=== PATIENT | female | born 1975 | race Caucasian/White ===

== ENCOUNTER → 2017-02-13 | Day surgery (SDC) | payer OTHER ==
[~2017-02-13] MED LIST: Acetaminophen/oxyCODONE 325-5 MG Tab PO PRN; HYDROmorphone 0.5 MG/0.5 ML Syringe IVPUSH PRN; HYDROmorphone 1 MG/ML Syringe ONE; Ketorolac 30 MG/ML SDV ONE; Lactated Ringers 1,000 ML ONE; Lidocaine 1% 4 ML ONE; Lidocaine 1% with EPINEPHrine 1:100,000 20 ML MDV ONE; Lidocaine 1%/Sod Bicarbonate in NS 8.4% 1 ML Syringe IV PRN; Meperidine PF 50 MG/ML Syringe IVPUSH PRN; Midazolam 1 MG/ML 2 ML SDV ONE; Neostigmine Methylsulfate 1 MG/ML 5 ML Syringe ONE; Ondansetron 4 MG/2 ML SDV IVPUSH PRN; Ondansetron 4 MG/2 ML SDV ONE; Promethazine 6.25 MG in Sodium Chloride 0.9% 50 ML IV PRN; Propofol 200 MG/20 ML SDV ONE; Rocuronium 50 MG/5 ML Vial ONE; Scopolamine 1.5 MG Transdermal Patch TOP ONE; Sodium Chloride 0.9% 10 ML Syringe FLUSH PRN; Sodium Chloride 0.9% 50 ML SDV ONE; ceFAZolin 1 GM Vial ONE; diphenhydrAMINE 50 MG/ML SDV IVPUSH PRN; fentaNYL 100 MCG/2 ML SDV IVPUSH PRN; fentaNYL 250 MCG/5 ML SDV ONE
[2017-02-13] MEDS: Lactated Ringers 1,000 ML IV SCH ×2 (08:35→11:01)
--- NOTE | 2017-02-13 09:03 | PCM.PREANE ---
Preanesthetic Assessment - Procedure Proposed Procedure: Total Vaginal Hysterectomy - Anesthesia/Transfusion/Family Hx Anesthesia History: Prior Anesthesia Reaction Type of Anesthesia Reaction: Excessive Nausea/Vomiting Family History of Anesthesia Reaction: No - Review of Systems General: No Symptoms Pulmonary: No Symptoms Cardiovascular: No Symptoms Gastrointestinal: No symptoms Neurological: No Symptoms Other: Reports: Thyroid Problems (Hypothyroid x 10 yrs. decreased dosage in January. currently asymptomatic) - Physical Assessment NPO Status Date: 02/12/17 NPO Status Time: 23:00 O2 Sat by Pulse Oximetry: 100 Respiratory Rate: 16 Vital Signs: Last Vital Signs Temp 37.3 C 02/13/17 08:05 Pulse 76 02/13/17 08:05 Resp 16 02/13/17 08:05 BP 118/73 02/13/17 08:05 Pulse Ox 100 02/13/17 08:05 Height: 1.57 m Weight: 83.461 kg ASA Class: 2 Mental Status: Alert & Oriented x3 Airway Class: Mallampati = 1 Dentition: Reports: [place](s) (bilateral lower molars; also has multiple fillings ), Missing Tooth/Teeth Thyro-Mental Finger Breadths: 3 Mouth Opening Finger Breadths: 3 - Lab Values: Laboratory Last Values WBC 7.84 K/mm3 (3.98-10.04) 02/12/17 10:53 RBC 4.58 M/mm3 (3.98-5.22) 02/12/17 10:53 Hgb 14.4 gm/L (11.2-15.7) 02/12/17 10:53 Hct 42.9 % (34.1-44.9) 02/12/17 10:53 MCV 93.7 fl (79.4-94.8) 02/12/17 10:53 MCH 31.4 pg (25.6-32.2) 02/12/17 10:53 MCHC 33.6 g/dl (32.2-35.5) 02/12/17 10:53 RDW Std Deviation 43.4 fL (36.4-46.3) 02/12/17 10:53 Plt Count 341 K/mm3 (182-369) 02/12/17 10:53 MPV 8.6 fl (9.4-12.3) L 02/12/17 10:53 Neut % (Auto) 57.7 % (34.0-71.1) 02/12/17 10:53 Lymph % (Auto) 33.3 % (19.3-51.7) 02/12/17 10:53 [place] % (Auto) 7.1 % (4.7-12.5) 02/12/17 10:53 Eos % (Auto) 1.3 (0.7-5.8) 02/12/17 10:53 Baso % (Auto) 0.5 % (0.1-1.2) 02/12/17 10:53 Neut # (Auto) 4.52 K/mm3 (1.56-6.13) 02/12/17 10:53 Lymph # (Auto) 2.61 K/mm3 (1.18-3.74) 02/12/17 10:53 [place] # (Auto) 0.56 K/mm3 (0.24-0.36) H 02/12/17 10:53 Eos # (Auto) 0.10 K/mm3 (0.04-0.36) 02/12/17 10:53 Baso # (Auto) 0.04 K/mm3 (0.01-0.08) 02/12/17 10:53 Sodium 138 mEq/L (136-145) 02/12/17 10:53 Potassium 4.1 mEq/L (3.5-5.1) 02/12/17 10:53 Chloride 103 mEq/L (98-107) 02/12/17 10:53 Carbon Dioxide 30 mEq/L (21-32) 02/12/17 10:53 Anion Gap 9.1 (5-15) 02/12/17 10:53 BUN 11 mg/dL (7-18) 02/12/17 10:53 Creatinine 0.9 mg/dL (0.55-1.02) 02/12/17 10:53 Est Cr Clr Drug Dosing TNP 02/12/17 10:53 Estimated GFR (MDRD) > 60 mL/min (>60) 02/12/17 10:53 BUN/Creatinine Ratio 12.2 (14-18) L 02/12/17 10:53 Glucose 98 mg/dL (74-106) 02/12/17 10:53 Calcium 9.3 mg/dL (8.5-10.1) 02/12/17 10:53 Total Bilirubin 0.4 mg/dL (0.2-1.0) 02/12/17 10:53 AST 14 U/L (15-37) L 02/12/17 10:53 ALT 29 U/L (14-59) 02/12/17 10:53 Alkaline Phosphatase 62 U/L (46-116) 02/12/17 10:53 Total Protein 8.2 g/dl (6.4-8.2) 02/12/17 10:53 Albumin 4.2 g/dl (3.4-5.0) 02/12/17 10:53 Globulin 4.0 gm/dL 02/12/17 10:53 Albumin/Globulin Ratio 1.1 (1-2) 02/12/17 10:53 TSH 3rd Generation 0.147 uIU/mL (0.358-3.74) L 02/12/17 10:53 Urine Color Yellow (Yellow) 02/12/17 10:53 Urine Appearance Clear (Clear) 02/12/17 10:53 Urine pH 8.5 (5.0-8.0) H 02/12/17 10:53 Ur Specific Ragland 1.015 (1.005-1.030) 02/12/17 10:53 Urine Protein Negative (Negative) 02/12/17 10:53 Urine Glucose (UA) Negative (Negative) 02/12/17 10:53 Urine Ketones Negative (Negative) 02/12/17 10:53 Urine Occult Blood Negative (Negative) 02/12/17 10:53 Urine Nitrite Negative (Negative) 02/12/17 10:53 Urine Bilirubin Negative (Negative) 02/12/17 10:53 Urine Urobilinogen 0.2 (0.2-1.0) 02/12/17 10:53 Ur Leukocyte Esterase 1+ (Negative) H 02/12/17 10:53 Urine HCG, Qual Negative (NEGATIVE) 02/13/17 08:07 Blood Type O NEGATIVE 02/12/17 10:53 Gel Antibody Screen Negative 02/12/17 10:53 - Allergies Allergies/Adverse Reactions: Allergies Allergy/AdvReac Type Severity Reaction Status Date / Time codeine Allergy Cannot Verified 02/12/17 13:07 Remember Penicillins Allergy Cannot Verified 02/12/17 13:07 Remember prednisone Allergy Cannot Verified 07/06/17 13:07 Remember tramadol Allergy Cannot Verified 02/12/17 13:07 Remember - Blood Blood Available: No - Acknowledgements Anesthesia Type Planned: General Anesthesia (Planned TIVA for PONV) Pt an Appropriate Candidate for the Planned Anesthesia: Yes Alternatives and Risks of Anesthesia Discussed w Pt/Guardian: Yes Pt/Guardian Understands and Agrees with Anesthesia Plan: Yes PreAnesthesia Questionnaire HEENT History: Reports: Impaired Vision Cardiovascular History: Reports: High Cholesterol Respiratory History: Reports: Sleep Apnea (uses CPAP) Gastrointestinal History: Reports: None 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: 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 (HX), Other (See Below) (Menorrhagia) Musculoskeletal History: Reports: None Neurological History: Reports: None Psychiatric History: Reports: None Endocrine/Metabolic History: Reports: Hypothyroidism, Other (See Below) (Pre diabetic on metformin) Hematologic History: Reports: None Immunologic History: Reports: None Oncologic (Cancer) History: Reports: None Dermatologic History: Reports: None - Past Surgical History Head Surgeries/Procedures: Reports: None HEENT Surgical History: Reports: Naso-Sinus Surgery, Oral Surgery, Tonsillectomy , Other (See Below) Female Surgical History: Reports: Cervical Cryotherapy, Endometrial Ablation (laparoscopy) - SUBSTANCE USE Smoking Status *Q: Never Smoker Tobacco Use Within Last Twelve Months: No Second Hand Smoke Exposure: No Days Per Week of Alcohol Use: 4 Number of Drinks Per Day: 1 Total Drinks Per Week: 4 Recreational Drug Use History: No - HOME MEDS Home Medications: Home Meds Levothyroxine 150 mcg PO DAILY 02/12/17 [History] Multivitamin [Multivitamins] 1 cap PO DAILY 02/12/17 [History] Nystatin [Nystatin] 1 applic TOP ASDIRECTED 02/12/17 [History] Pravastatin [Pravachol] 20 mg PO DAILY 02/12/17 [History] Triamcinolone Acetonide [Nasal Allergy] 1 spray NASBOTH DAILY 02/12/17 [History] metFORMIN [Glucophage XR] 500 mg PO BID 02/12/17 [History] - CURRENT (IN HOUSE) MEDS Current Meds: Current Medications Lactated Ringer's (Ringers, Lactated) 1,000 mls @ 125 mls/hr IV ASDIRECTED WILMA Stop: 02/13/17 23:00 Lidocaine/Sodium Bicarbonate (Buffered Lidocaine 1% In Ns 8.4%) 0.25 ml IV ONETIME PRN PRN Reason: Prior to IV Start Stop: 02/13/17 18:00 Sodium Chloride (Saline Flush) 10 ml FLUSH ASDIRECTED PRN PRN Reason: Keep Vein Open Stop: 02/13/17 18:00 Discontinued Medications Fentanyl (Sublimaze) Confirm Administered Dose 250 mcg .ROUTE .STK-MED ONE Stop: 02/13/17 08:58 Lidocaine/Epinephrine (Xylocaine 1% With Epinephrine 1:100,000) Confirm Administered Dose 20 ml .ROUTE .STK-MED ONE Stop: 02/13/17 08:38 Midazolam HCl (Versed 1 Mg/Ml) Confirm Administered Dose 2 mg .ROUTE .STK-MED ONE Stop: 02/13/17 08:58 Propofol (Diprivan 20 Ml) Confirm Administered Dose 600 mg .ROUTE .STK-MED ONE Stop: 02/13/17 08:58 Scopolamine (Transderm-Scop) 1.5 mg TOP ONETIME ONE Stop: 02/13/17 08:43 Sodium Chloride (Normal Saline) Confirm Administered Dose 50 ml .ROUTE .STK-MED ONE Stop: 02/13/17 08:38
--- NOTE | 2017-02-13 10:35 | PCM.POSTAN ---
POST ANESTHESIA ASSESSMENT - MENTAL STATUS Mental Status: alert, oriented - VITAL SIGNS Pulse Rate: 59 SaO2: 98 Resp Rate: 10 Blood Pressure: 94/59 Temperature: 37.1 C - RESPIRATORY Respiratory Status: respiratory rate WNL, airway patent, O2 saturation stable, supplemental oxygen - CARDIOVASCULAR CV Status: pulse rate WNL, blood pressure stable - GASTROINTESTINAL GI Status: no symptoms - PAIN Pain Score: 0 - POST OP HYDRATION Hydration Status: adequate & stable
--- NOTE | 2017-02-13 10:39 | PCM.OPNOTE ---
- General Post-Op/Procedure Note Date of Surgery/Procedure: 02/13/17 Operative Procedure(s): Total vaginal hysterectomy with bilateral salpingectomy Findings: Uterus is upper limits normal size. Ovaries were functional in appearance as were the fallopian tubes. There was a corpus luteum cyst on the left ovary. Pre Op Diagnosis: Menometrorrhagia Post-Op Diagnosis: Same Anesthesia Technique: General ET tube Other Anesthesia Type: Lidocaine quarter percent with [id number] mL total Primary Surgeon: Blayne Phan Secondary Surgeon: Lamberto Murray Anesthesia Provider: Jeff Cruz Fluid Replacement, Intraop: 1,500 EBL in mLs: 200 Complications: None Condition: Good Free Text/Narrative:: Surgery duration: 44 minutes Complications: None Specimens: With bilateral tubes in one specimen container. Procedure: The patient was placed in supine position on the operating table. General endotracheal anesthesia was accomplished. After positioning, and adequate prep and drape, the procedure was then performed. Sterile speculum was placed in the vagina and cervix was visualized. Cervix was injected with [ lidocaine quarter percent with epinephrine]. [20 cc] used. A full circumference incision was made in the cervical epithelium. The bladder was pushed well back off cervix. Posterior cul-de-sac was then entered sharply without problems. Left uterosacral was crossclamped with a LigaSure vessel closure system. The left uterosacral and then the right uterosacral ligament pedicles were developed using the LigaSure system. The anterior cul-de-sac was then entered without problems and the uterine vasculature, cardinal ligament and broad ligament then developed using LigaSure vessel closure system. The uterus was inverted at this time and upper broad ligament fallopian tube pedicles were crossclamped with Sonam clamps. Specimen was totally removed. Both these pedicles were then secured with a Sonam stitch of #1 Vicryl. Left and right fallopian tube was normal in appearance.. Using LigaSure vessel closure system each of the tubes was then removed and sent with the specimen. The posterior vaginal cuff was run with an 0 Monocryl suture from approximately 2:00 to 10 o'clock position for hemostatic reasons. The patient was found to be hemostatically intact at this time, both ovaries appeared normal and were left in place. A pursestring suture was and placed in the peritoneal cavity externalizing pedicles in case of bleeding. Vaginal cuff was closed with running locked suture of 0 Monocryl. Patient was returned to supine position and awakened from general endotracheal anesthesia. She tolerated the procedure was then left the operating room in satisfactory condition.
[2017-02-13 15:19] VITALS: BP 113/64
== END | disposition home or self-care (01) ==
LOC: JD.SDS 07:58 → MERGE 09:15
PROVIDERS: ATTEND Obstetrics & Gynecology
PROC: 0UT97ZZ Resection of Uterus, Via Natural or Artificial Opening (ICD-10-PCS; principal; 2017-02-13)
PROC: 0UTC7ZZ Resection of Cervix, Via Natural or Artificial Opening (ICD-10-PCS; 2017-02-13)
PROC: 0UT77ZZ Resection of Bilateral Fallopian Tubes, Via Natural or Artificial Opening (ICD-10-PCS; 2017-02-13)
PROC: 0UT97ZZ Resection of Uterus, Via Natural or Artificial Opening (ICD-10-PCS; 2017-02-13)
PROC: 0UTC7ZZ Resection of Cervix, Via Natural or Artificial Opening (ICD-10-PCS; 2017-02-13)
PROC: 0UT77ZZ Resection of Bilateral Fallopian Tubes, Via Natural or Artificial Opening (ICD-10-PCS; 2017-02-13)
DX: N72 Inflammatory disease of cervix uteri (principal); N87.9 Dysplasia of cervix uteri, unspecified; N80.0 Endometriosis of uterus; N83.8 Other noninflammatory disorders of ovary, fallopian tube and broad ligament; E78.00 Pure hypercholesterolemia, unspecified; G47.30 Sleep apnea, unspecified; E03.9 Hypothyroidism, unspecified; R73.03 Prediabetes; E66.9 Obesity, unspecified; K58.9 Irritable bowel syndrome, unspecified; M35.00 Sjogren syndrome, unspecified; Z79.84 Long term (current) use of oral hypoglycemic drugs; Z79.51 Long term (current) use of inhaled steroids; Z79.899 Other long term (current) drug therapy; Z88.0 Allergy status to penicillin; Z88.5 Allergy status to narcotic agent; Z88.8 Allergy status to other drugs, medicaments and biological substances; Z99.89 Dependence on other enabling machines and devices; Z90.89 Acquired absence of other organs; Z98.890 Other specified postprocedural states; Z86.32 Personal history of gestational diabetes; Z86.19 Personal history of other infectious and parasitic diseases; Z68.34 Body mass index [BMI] 34.0-34.9, adult
CPT/HCPCS: 36415; 58262; 80053; 81003; 81025; 84443; 85025; 86850; 86900; 86901; 88307; A9270; J0690; J1170; J1885; J2250; J2405; J2550; J2710; J3010; J7050; J7120; 00944; J2704

== ENCOUNTER 2018-10-12 17:33 | Emergency (ER) | payer BC, OTHER ==
[2018-10-12 18:11] VITALS: BP 128/91
--- NOTE | 2018-10-12 19:34 | EDM.PDOC ---
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 She saw Skylar kidd who instructed her to come to the ER for further evaluation and to rule out a ovarian torsion. Onset: Gradual Onset Date: 10/08/18 Onset Time: 12:00 Duration: Day(s): (4), Getting Worse Location: Reports: Pelvis (llq) Quality: Reports: Dull (constant pain), Same as Previous Episode (llq) Severity: Mild Worsens with: Reports: Movement Associated Symptoms: Reports: No Other Symptoms. Denies: Diaphoresis, Fever/ Chills, Loss of Appetite, Nausea/Vomiting Left Lower Abdomen Pain Score (Numeric/FACES): 4 - Related Data Allergies Allergy/AdvReac Type Severity Reaction Status Date / Time codeine Allergy Cannot Verified 10/12/18 18:11 Remember Penicillins Allergy Cannot Verified 10/12/18 18:11 Remember prednisone Allergy Cannot Verified 10/12/18 18:11 Remember tramadol Allergy Cannot Verified 10/12/18 18:11 Remember Home Meds: Home Meds Levothyroxine 150 mcg PO DAILY 02/12/17 [History] Multivitamin [Multivitamins] 1 cap PO DAILY 02/12/17 [History] Nystatin 1 applic TOP ASDIRECTED 02/12/17 [History] Pravastatin [Pravachol] 20 mg PO DAILY 02/12/17 [History] Triamcinolone Acetonide [Nasal Allergy] 1 spray NASBOTH DAILY 02/12/17 [History] metFORMIN [Glucophage XR] 500 mg PO BID 02/12/17 [History] Acetaminophen/oxyCODONE [Percocet 325-5 MG] 2 tab PO Q4H PRN #30 tablet [Rx] Ketorolac [Toradol] 10 mg PO TID PRN #12 tab 10/12/18 [Rx] Past Medical History HEENT History: Reports: Impaired Vision Cardiovascular History: Reports: High Cholesterol Respiratory History: Reports: Sleep Apnea Gastrointestinal History: Reports: None 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, 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 (See Below) Musculoskeletal History: Reports: None Neurological History: Reports: None Psychiatric History: Reports: None Endocrine/Metabolic History: Reports: Hypothyroidism, Other (See Below) Hematologic History: Reports: None Immunologic History: Reports: None Oncologic (Cancer) History: Reports: None Dermatologic History: Reports: None - Past Surgical History Head Surgeries/Procedures: Reports: None HEENT Surgical History: Reports: Naso-Sinus Surgery, Oral Surgery, Tonsillectomy , Other (See Below) Female Surgical History: Reports: Cervical Cryotherapy, Endometrial Ablation , Hysterectomy Social & Family History - Tobacco Use Smoking Status *Q: Never Smoker Second Hand Smoke Exposure: No - Caffeine Use Caffeine Use: Reports: Coffee, Soda - Recreational Drug Use Recreational Drug Use: No ED ROS GENERAL - Review of Systems Review Of Systems: See Below Constitutional: Reports: No Symptoms HEENT: Reports: No Symptoms Respiratory: Reports: No Symptoms Cardiovascular: Reports: No Symptoms Endocrine: Reports: No Symptoms GI/Abdominal: Reports: Abdominal Pain. Denies: Constipation, Diarrhea, Distension, Nausea, Vomiting : Reports: No Symptoms Musculoskeletal: Reports: No Symptoms Skin: Reports: No Symptoms Neurological: Reports: No Symptoms Psychiatric: Reports: No Symptoms Hematologic/Lymphatic: Reports: No Symptoms Immunologic: Reports: No Symptoms ED EXAM, GI/ABD - Physical Exam Exam: See Below Exam Limited By: No Limitations General Appearance: Alert, WD/WN Respiratory/Chest: No Respiratory Distress, Lungs Clear, Normal Breath Sounds, No Accessory Muscle Use, Chest Non-Tender Cardiovascular: Normal Peripheral Pulses, Regular Rate, Rhythm, No Edema, No Gallop, No JVD, No Murmur, No Rub GI/Abdominal Exam: Normal Bowel Sounds, Soft, No Organomegaly, No Distention, No Abnormal Bruit, No Mass, Pelvis Stable, Tender (LLQ tenderness) (Female) Exam: Deferred Back Exam: Normal Inspection, Full Range of Motion Extremities: Normal Inspection, Normal Range of Motion, Non-Tender, No Pedal Edema, Normal Capillary Refill Neurological: Alert, Oriented, Normal Cognition, Normal Gait, Normal Reflexes, No Motor/Sensory Deficits Psychiatric: Normal Affect Skin Exam: Warm, Dry, Intact, Normal Color, No Rash Lymphatic: No Adenopathy Course - Vital Signs Last Recorded V/S: Last Vital Signs Temp 97.7 F 10/12/18 18:09 Pulse 88 10/12/18 18:09 Resp 16 10/12/18 18:09 BP 128/91 H 10/12/18 18:09 Pulse Ox 100 10/12/18 18:09 - Orders/Labs/Meds Labs: Laboratory Tests 10/12/18 10/12/18 Range/Units 19:35 19:35 WBC 8.27 (3.98-10.04) K/mm3 RBC 4.23 (3.98-5.22) M/mm3 Hgb 13.0 (11.2-15.7) gm/L Hct 39.4 (34.1-44.9) % MCV 93.1 (79.4-94.8) fl MCH 30.7 (25.6-32.2) pg MCHC 33.0 (32.2-35.5) g/dl RDW Std Deviation 42.3 (36.4-46.3) fL Plt Count 316 (182-369) K/mm3 MPV 8.8 L (9.4-12.3) fl Neut % (Auto) 50.6 (34.0-71.1) % Lymph % (Auto) 36.4 (19.3-51.7) % [place] % (Auto) 8.5 (4.7-12.5) % Eos % (Auto) 3.9 (0.7-5.8) Baso % (Auto) 0.5 (0.1-1.2) % Neut # (Auto) 4.19 (1.56-6.13) K/mm3 Lymph # (Auto) 3.01 (1.18-3.74) K/mm3 [place] # (Auto) 0.70 H (0.24-0.36) K/mm3 Eos # (Auto) 0.32 (0.04-0.36) K/mm3 Baso # (Auto) 0.04 (0.01-0.08) K/mm3 Sodium 142 (136-145) mEq/L Potassium 3.4 L (3.5-5.1) mEq/L Chloride 103 (98-107) mEq/L Carbon Dioxide 30 (21-32) mEq/L Anion Gap 12.4 (5-15) BUN 9 (7-18) mg/dL Creatinine 0.8 (0.55-1.02) mg/dL Est Cr Clr Drug Dosing 73.93 mL/min Estimated GFR (MDRD) > 60 (>60) mL/min BUN/Creatinine Ratio 11.3 L (14-18) Glucose 84 (74-106) mg/dL Calcium 9.0 (8.5-10.1) mg/dL Total Bilirubin 0.2 (0.2-1.0) mg/dL AST 11 L (15-37) U/L ALT 23 (14-59) U/L Alkaline Phosphatase 75 (46-116) U/L Total Protein 7.4 (6.4-8.2) g/dl Albumin 3.5 (3.4-5.0) g/dl Globulin 3.9 gm/dL Albumin/Globulin Ratio 0.9 L (1-2) Meds: Medications Discontinued Medications Generic Name Dose Route Start Last Admin Trade Name Freq PRN Reason Stop Dose Admin Ketorolac Tromethamine 60 mg 10/12/18 21:31 10/12/18 21:37 Toradol IM 10/12/18 21:32 60 mg ONETIME ONE Administration - Re-Assessments/Exams Free Text/Narrative Re-Assessment/Exam: 10/12/18 21:38 Her ultrasound revealed left ovary measures 3.4 x 2.0 x 2.3 cm 1.5 cm corpus luteal cyst. Normal color Doppler flow. I discussed the finding with the patient. I will discharge home with Toradol for pain management. I will give her 2 days off work. I instructed her to follow up with Skylar Onofre for further evaluation and treatment. Patient verbalized understanding and is comfortable with plan for discharge. I instructed her to come back to ER for any new or acute worsening symptoms. Departure - Departure Time of Disposition: 21:42 Disposition: Home, Self-Care 01 Condition: Good Clinical Impression: Pain in pelvis - Discharge Information *PRESCRIPTION DRUG MONITORING PROGRAM REVIEWED*: Not Applicable *COPY OF PRESCRIPTION DRUG MONITORING REPORT IN PATIENT DANNI: Not Applicable Prescriptions: Ketorolac [Toradol] 10 mg PO TID PRN #12 tab PRN Reason: Pain Instructions: Pelvic Pain, Female, [id number] Referrals: Nito Evangelista MD [Primary Care Provider] - Forms: ED Department Discharge, ED Return to Work/School Form Additional Instructions: follow up with Skylar Onofre <Rakesh Ng - Last Filed: 10/14/18 11:21> Course - Re-Assessments/Exams Free Text/Narrative Re-Assessment/Exam: 10/14/18 11:20. Patient was seen by Jolanta Mullins. I have also seen patient, discussed sx and findings with Tika and patient. I agree with her hx, exam, evaluation and plan of treatment as documented.
[2018-10-12] MEDS ORDERED: Ketorolac 60 MG/2 ML SDV IM ONE (21:31)
--- NOTE | 2018-10-13 07:01 | US ---
Pelvic ultrasound: Multiple real-time images were obtained transabdominally and transvaginally. Comparison: Prior pelvic ultrasound study of 07/27/18. Uterus not seen compatible with previous hysterectomy. Ovaries show no cyst or solid abnormality. Incidental physiologic findings are seen within the ovaries. No free fluid is seen. Measurements: Right ovary: 2.4 x 1.2 x 1.9 cm Left ovary: 3.4 x 2.0 x 2.3 cm Impression: 1. Normal pelvic ultrasound, status post hysterectomy. Diagnostic code #1 I agree with preliminary report from [facility], finalized on 10/12/18, 9:52 PM Central Time
== END 2018-10-12 22:07 | disposition home or self-care (01) ==
LOC: JD.ED 17:33
DX: R10.2 Pelvic and perineal pain (principal); E78.00 Pure hypercholesterolemia, unspecified; E03.9 Hypothyroidism, unspecified; Z88.8 Allergy status to other drugs, medicaments and biological substances; Z88.5 Allergy status to narcotic agent; Z79.84 Long term (current) use of oral hypoglycemic drugs; Z79.899 Other long term (current) drug therapy
CPT/HCPCS: 36415; 76830; 80053; 85025; 96372; 99284; J1885